=== PATIENT | female | born 1955 | race Caucasian/White ===

== ENCOUNTER → 2016-11-22 | Outpatient (CLI) | payer BC, OTHER ==
[~2016-11-22] MED LIST: ACHD5005 PO; AMOX500C2 PO; ESTR0.3T PO; FLUT16SP22 NS; MELO-195 PO; OMEP-10 PO; TOBR5DRO2 OP
--- NOTE | 2016-11-23 19:15 | Diagnostic Imaging Report ---
Bilateral screening mammogram The current study was also evaluated with a Computer Aided Detection (CAD) system. Indication: Screening. No current complaints stated on the questionnaire. COMPARISON: 10/26/15 FINDINGS: The breasts are composed of heterogeneously dense parenchyma which may decrease mammographic sensitivity. Benign-appearing calcifications are seen. Allowing for technique and positional differences, no suspicious change is seen. IMPRESSION: Dense breasts with no definite change. ACR BI-RADS Category 2: Benign findings. Result letter will be mailed to the patient. Note: At least 10% of breast cancer is not imaged by mammography. Dictated by: Dictated on workstation # [id number]
== END ==
LOC: RAD 07:57
PROVIDERS: ATTEND Internal Medicine
DX: Z12.31 Encounter for screening mammogram for malignant neoplasm of breast (principal)
CPT/HCPCS: 77067

== ENCOUNTER → 2017-11-29 | Outpatient (CLI) | payer BC ==
--- NOTE | 2017-11-29 11:08 | Diagnostic Imaging Report ---
INDICATION: Family history of osteoporosis. Bone mineral analysis of the lumbar spine and both hips was performed. Bone mineral density lumbar spine L2-L4 is 1.364 with T score of -1.4. Bone mineral density left femoral neck is 0.892 with T score -1.0. Bone mineral density right femoral neck is 0.905 with T score -1.0. IMPRESSION: Normal bone mineral density of the lumbar spine with osteopenia of bilateral femoral necks. Dictated by: Dictated on workstation # [id number]
== END ==
LOC: RAD 09:16
PROVIDERS: ATTEND Internal Medicine
DX: M85.88 Other specified disorders of bone density and structure, other site (principal); Z82.62 Family history of osteoporosis
CPT/HCPCS: 77080

== ENCOUNTER → 2018-12-13 | Outpatient (CLI) | payer BC ==
--- NOTE | 2018-12-13 08:39 | Diagnostic Imaging Report ---
Indication: Routine screening. Comparison is made with prior mammogram from 11/29/2017 and 11/22/2016. 2-D and 3-D bilateral screening mammography was performed with CAD. Both breasts are heterogeneously dense, limiting the sensitivity of mammography. The parenchymal pattern is stable. Benign calcifications again noted bilaterally. No mass or malignant-appearing microcalcifications are seen. Axillae are unremarkable. Impression: BI-RADS category 2 No mammographic features suspicious for malignancy are identified. ACR BI-RADS Category 2: Benign findings. Result letter will be mailed to the patient. Note: At least 10% of breast cancer is not imaged by mammography. Dictated by: Dictated on workstation # [id number]
== END ==
LOC: RAD 07:16
PROVIDERS: ATTEND Internal Medicine
DX: Z12.31 Encounter for screening mammogram for malignant neoplasm of breast (principal)
CPT/HCPCS: 77067

== ENCOUNTER 2019-12-02 07:20 | Emergency (ER) | payer BC ==
[~2019-12-02] VITALS: Ht 160 cm; Wt 83.0 kg
--- OUTSIDE RECORDS SUMMARY | 2019-12-02 07:25 | XMS REPORT ---
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 Name Role Phone RENEE AMBROSE Unavailable RENEE AMBROSE MD Unavailable Unavailable JEAN PAUL BLACK Unavailable Unavailable RENEE AMBROSE MD Unavailable Unavailable Unavailable Unavailable Unavailable Unavailable Allergies The data below is from unstructured sources Allergen Type Severity Reaction Last Updated No Known Drug Allergies 06/04/12 Medications No Information Problems Active Problems Problem Normalized Date Last Normalized Normalized Provider Fa cility Classification Problem(s) Recorded Problem Problem Sta tus Duration Other Encounter for Episodic Active RENEE AMBROSE , Not Available screening for screening (85849) suspected mammogram for conditions malignant (not mental neoplasm of disorders or breast infectious Translations: disease) (14 [ OTH SCREEN sources.) MAMMO-MALIGN NEOPLASM OF STAS] Residual Family history Episodic Active [facility] Sari MURPHY Via codes; of [facility] unclassified [facility] - (4 sources.) [facility] (91689) Other bone Other Episodic Active POLINA MURPHY Via disease and specified [facility] musculoskeleta disorders of Hospital - l deformities bone density [facility] (4 sources.) and structure, (09722) other site Past or Other Problems Problem Normalized Date Last Normalized Normalized Provider Fa cility Classification Problem(s) Recorded Problem Problem Sta tus Duration External cause Other no information no information JEAN PAUL Not Available codes: accidents CARI VALDEZ (05407) Natural/enviro nment (2 sources.) External cause Other external no information no information GRE TCHEN Not Available codes: cause status CARI VALDEZ (52484) Unspecified (2 sources.) Other eye Pain in or Episodic Completed JEAN PAUL Not Availab le disorders (2 around eye CARI VALDEZ (41209) sources.) Superficial Superficial Episodic Completed JEAN PAUL Not Avai lable injury; injury of CARI VALDEZ (96437) contusion (2 cornea sources.) Procedures No Information Immunizations No Information Results The data below is from unstructured sourcesNo Known Relevant Diagnostic Tests, Laboratory Data and/or Discharge Summary. Vital Signs No Information Interventions No Information Plan of Treatment No Information Goals No Information Social History The data below is from unstructured sources History Response Recorde d Date/Time Alcohol Use Denies Use 1 10:02pm Recreational Drug Use N 03/19/13 10:02pm History Response Recorde d Date/Time Alcohol Use Denies Use 0 06/04/12 8:32am Recreational Drug Use N 06/04/12 8:32am History Response Recorde d Date/Time Alcohol Use Denies Use 0 06/04/12 8:32am Recreational Drug Use N 06/04/12 8:32am Functional Status No Information Mental Status No Information Encounters Encounter Normalized Encounter Encounter Diagnosis Care Provi lefty Organization Date Type 2017 Patient encounter no information no name no or ganization name 11-22-2016 Patient encounter no information no name no or ganization name 12-13-2018 Patient encounter no information no name no or ganization name procedure 12-13-2018 Patient encounter no information RENEE AMBROSE MD (no [facility] procedure phone) [facility] (no phone) 2017 Patient encounter no information RENEE AMBROSE MD (no [facility] procedure phone) [facility] (no phone) 11-22-2016 Patient encounter no information RENEE AMBROSE MD (no [facility] procedure phone) [facility] (no phone) 10-26-2015 Patient encounter no information no name no or ganization name procedure 10-13-2014 Patient encounter no information no name no or ganization name procedure 09-26-2013 Patient encounter no information no name no or ganization name procedure Medical Equipment No Information Payers The data below is from unstructured sources Payer Name Policy Number Subscriber Name Relationship [facility] [id number] Zee Sutton Self / Same As Patient Advance Directives Directive Response Recor ded Date Advance Directives N 10:02pm Health Care Power of Track Inspecting Supervisor N 03/19/13 10:02pm Organ Donor Y 03/19/13 1 0:02pm Directive Response Recor ded Date Advance Directives N 7:10am Health Care Power of Track Inspecting Supervisor N 11/19/12 7:10am Organ Donor Y 11/19/12 7 :10am Additional Source Comments This clinical document has been generated using [employer] software that has been certified by the Office of the National Coordinator for Health Information Technology (ONC 15.99.04.3023.Diam.31.00.0.343019) and the National Committee for Onshore D[employer] (NCQA, as an eMeasure certified technology). FOR RECORDS PERTAINING TO PATIENTS WHO ARE OR HAVE BEEN ENROLLED IN A CHEMICAL D EPENDENCY/SUBSTANCE ABUSE PROGRAM, SOME INFORMATION MAY BE OMITTED. This clinica l summary was aggregated from multiple sources. Caution should be exercised in using it in the provision of clinical care. This summary normalizes information from multiple sources, and as a consequence, information in this document may ma terially change the coding, format and clinical context of patient data. In erlinda tion, data may be omitted in some cases. CLINICAL DECISIONS SHOULD BE BASED ON T HE PRIMARY CLINICAL RECORDS. [employer] provides no warranty or guara ntee of the accuracy or completeness of information in this document.The followi ng information is based on time limited clinical information
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
[2019-12-02] MEDS ORDERED: DICL100T83 (07:51)
--- NOTE | 2019-12-02 07:52 | ED Upper Extremity ---
General Chief Complaint: Upper Extremity Stated Complaint: FALL, R HAND PAIN Nursing Triage Note: PT AMB TO ROOM 6 PT CO OF R WRIST AND HAND PAIN FROM FALL THIS AM. DENIES LOC. Nursing Sepsis Screen: No Definite Risk Source: patient History of Present Illness Date Seen by Provider: Dec 02, 2019 Time Seen by Provider: 07:43 Initial Comments PT WAS WALKING INTO WORK [employer] ( WORKS HERE [employer]) AND TRIPPED ON THE CURB, AND FELL, LANDING ON OUTSTRETCHED RIGHT HAND OCCURRED JUST PRIOR TO ARRIVAL DID NOT HIT HEAD OR HAVE LOSS OF CONSCIOUSNESS NO NECK OR BACK PAIN NO LEG PAIN NO ELBOW OR SHOULDER PAIN NO PARESTHESIAS OR MOTOR DEFICITS. C/O PAIN TO RIGHT WRIST AND DORSAL ASPECT OF HAND AND KNUCKLES. NO THUMB PAIN PT IS RIGHT HANDED NO PRIOR INJURY TO THIS HAND PCP: DR. AMBROSE Allergies and Home Medications Allergies Coded Allergies: latex (Verified Allergy, Mild, RASH, 03/19/13) Home Medications Estrogens Conjugated 0.3 Mg Tab, 0.3 MG PO DAILY, (Reported) Patient Home Medication List Home Medication List Reviewed: Yes Review of Systems Constitutional: no symptoms reported Musculoskeletal: see HPI Skin: no symptoms reported Psychiatric/Neurological: No Symptoms Reported Past Kiiukoh-Czlhwp-Ylqige Hx Past Med/Social Hx: Reviewed and Corrections made Patient Social History Alcohol Use: Denies Use Recreational Drug Use: No Smoking Status: Never a Smoker Recent Foreign Travel: No Contact w/Someone Who Travel: No Recent Infectious Disease Expo: No Immunizations Up To Date Date of Influenza Vaccine: Jan 29, 2012 Past Medical History Surgeries: Yes (FOOT / NEUROMA REMOVED; TONSILLECTOMY) Orthopedic, Tonsillectomy Respiratory: No Cardiac: No Neurological: Yes Vertigo Reproductive Disorders: No Genitourinary: No Gastrointestinal: Yes Gastroesophageal Reflux Musculoskeletal: No Endocrine: No HEENT: Yes (CHRONIC SINUSITIS) Cancer: No Psychosocial: No Integumentary: No Blood Disorders: No Physical Exam Vital Signs Vital Signs - First Documented 12/02/19 07:42 Temp 36.5 Pulse 80 Resp 18 B/P (MAP) 127/78 (94) Pulse Ox 96 Capillary Refill : Less Than 3 Seconds Height, Weight, BMI Height: '" Weight: 185lbs. oz. 83.995617se; 32.00 BMI Method:Stated General Appearance: WD/WN, no apparent distress Back: normal inspection Shoulder: normal inspection Elbow/Forearm: normal inspection Wrist: Yes bone tenderness, Yes limited ROM, Yes pain, Yes soft tissue tenderness Hand: Right, bone tenderness, limited ROM, soft tissue tenderness Neurologic/Tendon: normal sensation, normal motor functions, normal tendon functions Neurologic/Psychiatric: head porter II-XII nml as tested, no motor/sensory deficits, alert, normal mood/affect, oriented x 3 Skin: normal color, warm/dry Procedures/Interventions Splinting and Joint Reduction : Splints: [place] Wrist Progress/Results/Core Measures Results/Orders My Orders Orders - HARRIET MCDERMOTT DO Wrist, Right, 3 Views Or More (12/02/19 07:47) Hand, Right, 3 Views (12/02/19 07:47) Acetaminophen Tablet (Tylenol Tablet) (12/02/19 08:22) Ibuprofen Tablet (Motrin Tablet) (12/02/19 08:22) Wrist-[place] (12/02/19 08:22) Vital Signs/I&O 12/02/19 07:42 Temp 36.5 Pulse 80 Resp 18 B/P (MAP) 127/78 (94) Pulse Ox 96 Blood Pressure Mean: 94 Diagnostic Imaging Comments XRAYS RIGHT HAND AND WRIST--NO ACUTE BONY INJURY, PER RADIOLOGIST REPORT AT 0818 Reviewed: Reviewed by Me Departure Impression Primary Impression: RIGHT WRIST AND HAND SPRAIN AND CONTUSION Disposition: 01 HOME, SELF-CARE Condition: Stable Departure-Patient Inst. Referrals: RENEE AMBROSE MD (PCP/Family) Primary Care Physician Patient Instructions: Common Wrist Injuries (DC), Contusion (DC) Add. Discharge Instructions: ICE TO AREA AT 20 MINUTE INTERVALS WEAR SPLINT NEEDED FOR COMFORT TYLENOL AND MOTRIN NEEDED FOR PAIN FOLLOW UP WITH YOUR DR IN 1 WEEK IF NO BETTER All discharge instructions reviewed with patient and/or family. Voiced understanding. Work/School Note: Work Release Form Date Seen in the Emergency Department: Dec 02, 2019 Return to Work: Dec 02, 2019 Other Restrictions Listed Below: LIMITED USE OF RIGHT HAND X 1 WEEK HARRIET MCDERMOTT DO Dec 02, 2019 07:52
--- NOTE | 2019-12-02 08:14 | Diagnostic Imaging Report ---
INDICATION: Fall with right hand pain. AP, oblique, and lateral views of the right hand are obtained. No fracture or acute bony abnormality is seen. Joint spaces are unremarkable except for some mild degenerative changes of the interphalangeal joints. IMPRESSION: No acute abnormality of right hand. Dictated by: Dictated on workstation # [id number]
--- NOTE | 2019-12-02 08:14 | Diagnostic Imaging Report ---
INDICATION: Fall with right wrist pain AP, oblique, and lateral views of the right wrist are obtained. No fracture or acute bony abnormality is seen. IMPRESSION: Negative right wrist. Dictated by: Dictated on workstation # [id number]
[2019-12-02] MEDS ORDERED: IBUPROFEN 800 MG (MOTRIN) TAB PO STA (08:22)
[2019-12-02] MEDS ORDERED: ACETAMINOPHEN 500 MG TAB (TYLENOL) PO STA (08:22)
[2019-12-02 09:01] VITALS: BP 135/85
== END 2019-12-02 09:00 | disposition home or self-care (01) ==
LOC: EDUNIT# 07:20 → ER 07:21
DX: S63.91XA Sprain of unspecified part of right wrist and hand, initial encounter (principal); Z91.040 Latex allergy status; W01.0XXA Fall on same level from slipping, tripping and stumbling without subsequent striking against object, initial encounter; Y92.481 Parking lot as the place of occurrence of the external cause
CPT/HCPCS: 73110; 73130

== ENCOUNTER → 2019-12-23 | Outpatient (CLI) | payer BC ==
[~2019-12-23] MED LIST changes: +DICL100T83
[2019-12-23 09:28] LABS: ALANINE AMINOTRANSFERASE 16 U/L (0-55); ALBUMIN 3.7 GM/DL (3.2-4.5); ALKALINE PHOSPHATASE 77 U/L (40-136); BILIRUBIN,TOTAL 0.3 MG/DL (0.1-1.0); BUN/CREATININE RATIO 14; CALCIUM 9.1 MG/DL (8.5-10.1); CARBON DIOXIDE 27 MMOL/L (21-32); CHLORIDE 104 MMOL/L (98-107); CHOLESTEROL 214 MG/DL (< 200); CREATININE SERUM 0.91 MG/DL (0.60-1.30); GFR ESTIMATED > 60; GLUCOSE 93 MG/DL (70-105); HDL CHOLESTEROL 90 MG/DL (40-60); POTASSIUM 4.7 MMOL/L (3.6-5.0); SODIUM 139 MMOL/L (135-145); TOTAL PROTEIN 7.1 GM/DL (6.4-8.2); TRIGLYCERIDES 108 MG/DL (<150); VLDL CHOLESTEROL 22 MG/DL (5-40)
== END ==
LOC: LAB 08:45
PROVIDERS: ATTEND Internal Medicine
DX: M19.90 Unspecified osteoarthritis, unspecified site (principal); E66.9 Obesity, unspecified
CPT/HCPCS: 36415; 80053; 80061

== ENCOUNTER → 2019-12-31 | Outpatient (CLI) | payer BC ==
--- NOTE | 2019-12-31 12:26 | Diagnostic Imaging Report ---
INDICATION: Routine screening. COMPARISON: 12/13/2018 and 11/29/2017. TECHNIQUE: 2D and 3D bilateral screening mammography was performed with CAD. FINDINGS: Both breasts remain heterogeneously dense, limiting the sensitivity of mammography. The parenchymal pattern is stable. No mass or malignant appearing microcalcifications are seen. There are benign calcifications present. The axillae are unremarkable. IMPRESSION: No mammographic features suspicious for malignancy are identified. ACR BI-RADS Category 2: Benign findings. Result letter will be mailed to the patient. Note: At least 10% of breast cancer is not imaged by mammography. Dictated by: Dictated on workstation # [id number]
== END ==
LOC: RAD 07:18
PROVIDERS: ATTEND Internal Medicine
DX: Z12.31 Encounter for screening mammogram for malignant neoplasm of breast (principal)
CPT/HCPCS: 77063; 77067

== ENCOUNTER → 2021-01-05 | Outpatient (CLI) | payer BC ==
[~2021-01-05] MED LIST changes: -DICL100T83; +NF-DICLOTA
--- NOTE | 2021-01-05 10:19 | Diagnostic Imaging Report ---
Indication: Routine screening. Comparison is made with prior mammogram from 12/31/2019 and 12/13/2018. 2-D and 3-D bilateral screening mammography was performed with CAD. Both breasts are heterogeneously dense, limiting the sensitivity of mammography. Occasional benign calcifications are noted. No mass or malignant-appearing microcalcifications are seen. Axillae are unremarkable. IMPRESSION: BI-RADS Category 2 No mammographic features suspicious for malignancy are identified. ACR BI-RADS Category 2: Benign findings. Result letter will be mailed to the patient. Note: At least 10% of breast cancer is not imaged by mammography. Dictated by: Dictated on workstation # [id number]
== END ==
LOC: RAD 07:30
PROVIDERS: ATTEND Internal Medicine
DX: Z12.31 Encounter for screening mammogram for malignant neoplasm of breast (principal)
CPT/HCPCS: 77063; 77067

== ENCOUNTER 2021-04-26 10:09 | Emergency (ER) | payer BC ==
[~2021-04-26] VITALS: Ht 60 cm; Wt 83.0 kg
--- NOTE | 2021-04-26 10:36 | ED Head Injury ---
General Chief Complaint: Trauma-Non Activation Stated Complaint: HEAD INJURY Nursing Triage Note: 0930 patient fell from a 3 foot step stool. " [facility]" denies loc, has laceration to posterior head. Source: patient Exam Limitations: no limitations History of Present Illness Date Seen by Provider: Apr 26, 2021 Time Seen by Provider: 10:33 Initial Comments To ER with reports of a head injury secondary to fall. This occurred just prior to arrival she was putting up some new curtains climbing down off of the counter with intent to step on a stepstool and the stepstool slid out from beneath her causing her to strike the back of her head on the floor. She recalls all events minor headache. No anticoagulant use. No neck pain. No loss of consciousness no nausea no vomiting. She does have a laceration to the back of her head. Tetanus was last updated about 9 years ago. Occurred: just prior to arrival Severity: moderate Location: occipital Method of Injury: fell Loss of Consciousness: no loss of consciousness Allergies and Home Medications Allergies Coded Allergies: latex (Verified Allergy, Mild, RASH, 03/19/13) Patient Home Medication List Home Medication List Reviewed: Yes Diclofenac Sod (Diclofenac Sodium ER) 100 Mg Tab, (Reported) Entered as Reported by: YANG PURCELL on 12/02/19 0751 Estrogens Conjugated (Premarin Tab) 0.3 Mg Tab, 0.3 MG PO DAILY, (Reported) Entered as Reported by: RALPH EDMOND on 06/04/12 0834 Review of Systems Review of Systems Constitutional: see HPI Eyes: No Symptoms Reported Ears, Nose, Mouth, Throat: no symptoms reported Respiratory: no symptoms reported Cardiovascular: no symptoms reported Gastrointestinal: No nausea, No vomiting Genitourinary: no symptoms reported Musculoskeletal: no symptoms reported Skin: no symptoms reported Psychiatric/Neurological: Denies Headache Endocrine: No Symptoms Reported Hematologic/Lymphatic: No Symptoms Reported Past Xhmmecc-Lzvacu-Zfucgz Hx Past Medical History Surgeries: Yes (FOOT / NEUROMA REMOVED; TONSILLECTOMY) Orthopedic, Tonsillectomy Respiratory: No Cardiac: No Neurological: Yes Vertigo Reproductive Disorders: No Genitourinary: No Gastrointestinal: Yes Gastroesophageal Reflux Musculoskeletal: No Endocrine: No HEENT: Yes (CHRONIC SINUSITIS) Cancer: No Psychosocial: No Integumentary: No Blood Disorders: No Physical Exam Vital Signs Vital Signs - First Documented 04/26/21 10:20 Pulse 73 Resp 18 B/P (MAP) 171/94 (119) Pulse Ox 99 O2 Delivery Room Air Capillary Refill : Less Than 3 Seconds Height, Weight, BMI Height: '" Weight: 185lbs. oz. 83.593080zs; 230.00 BMI Method:Stated General Appearance: WD/WN, no apparent distress HEENT: PERRL/EOMI, normal ENT inspection, TMs normal, other (1 cm left-sided occipital scalp laceration with depth to the subcutaneous tissue with minimal oozing of blood. No reece sign or hemotympanum.) Neck: non-tender, full range of motion Respiratory: normal breath sounds, no respiratory distress, no accessory muscle use Gastrointestinal: normal bowel sounds, non tender, soft Extremities: normal range of motion, non-tender Psychiatric: alert, oriented x 3 Crainal Nerves: normal hearing, normal speech, PERRL Skin: normal color, warm/dry [place] Coma Score Best Eye Response: (4) Open Spontaneously Best Verbal Response: (5) Oriented Best Motor Response: (6) Obeys Commands [place] Total: 15 Progress/Results/Core Measures Results/Orders My Orders Orders - BELINDA LOWE APRN Dipht,Pertuss(Acell),Tet Adult (Boostrix (04/26/21 10:45) Lidocaine 1% Inj 20 Ml (Xylocaine 1% Inj (04/26/21 10:45) Ct Head/Cervical Spine Wo (04/26/21 10:32) Medications Given in ED Current Medications Medications Dose Ordered Sig/Robert Route Start Time Stop Time Status Last Admin Dose Admin Diphtheria/ Tetanus/Acell Pertussis 0.5 ml ONCE ONCE IM 04/26/21 10:45 04/26/21 10:46 DC 04/26/21 11:04 0.5 ML Lidocaine HCl 20 ml ONCE ONCE INJ 04/26/21 10:45 04/26/21 10:46 DC 04/26/21 11:03 20 ML Vital Signs/I&O 04/26/21 10:20 Pulse 73 Resp 18 B/P (MAP) 171/94 (119) Pulse Ox 99 O2 Delivery Room Air Blood Pressure Mean: 119 Departure Communication (Admissions) 1136-1 cm laceration to the left occipital scalp was anesthetized with 1.5 mL of 1% lidocaine without epinephrine then scrubbed with chlorhexidine/saline solution then closed with 4 humera. NAME: ZEE SHRESTHA [facility] REC#: [id number] PT STATUS: REG ER : 1955 PHYSICIAN: BELINDA LOWE APRN ADMIT DATE: 04/26/21/ER Draft Date of Exam:04/26/21 CT HEAD/CERVICAL SPINE WO PROCEDURE: CT head and CT cervical spine without contrast. TECHNIQUE: Multiple contiguous axial images were obtained through the brain and cervical spine without the use of intravenous contrast. Sagittal and coronal reformations through the cervical spine were then performed. Auto Exposure Controls were utilized during the CT exam to meet ALARA standards for radiation dose reduction. INDICATION: Fall, pain, laceration. COMPARISON: None available. FINDINGS: No intracranial hemorrhage. No intracranial mass, mass effect, midline shift, herniation, hydrocephalus, or extra-axial fluid collection. No CT evidence of an acute ischemic infarction. The orbits are unremarkable. Laceration and small scalp hematoma involving the posterior left parieto-occipital scalp without underlying calvarial fracture. The left maxillary sinus is predominantly opacified with some hyperdense material present. This is associated with mild mucoperiosteal thickening in the left maxillary sinus paz. The paranasal sinuses are otherwise clear. The calvarium appears intact. Mild vascular calcifications. Minimal anterolisthesis of C4 on C5 measuring 2 to 3 mm. Minimal retrolisthesis of C5 on C6 measuring 2 mm. Alignment of the atlantooccipital joint is well maintained. Besides endplate degenerative changes, vertebral body heights are well-maintained. Severe disc space height loss at C3/C4, C5/C6, and C6/C7. Moderate disc space height loss at C4/C5. No acute fracture or dislocation. No destructive osseous process. Scattered facet joint degenerative changes and uncovertebral joint hypertrophy are present. There is moderate right and mild left neuroforaminal stenosis at C3/C4 with at least mild central canal stenosis. Mild central canal and bilateral neuroforaminal stenosis at C4/C5. Moderate right and mild left neuroforaminal stenosis with mild to moderate central canal stenosis at C5/C6. Moderate bilateral neuroforaminal stenosis with at least mild central canal stenosis at C6/C7. No apical pneumothorax. The paraspinal soft tissues are unremarkable. IMPRESSION: No acute intracranial abnormality. No acute osseous abnormality within the cervical spine with moderate multilevel degenerative changes as described above. Laceration and small hematoma associated with the left parieto-occipital scalp without underlying calvarial fracture. Chronic appearing sinusitis within the left maxillary sinus. Given internal hyperdensities, a component of fungal sinusitis may be present. Dictated on workstation # [id number] Dict: 04/26/21 1109 Trans: 04/26/21 1121 [id number] Interpreted by: RUT WREN MD Electronically signed by: Impression Primary Impression: Scalp laceration Additional Impression: Head injury Disposition: 01 HOME, SELF-CARE Condition: Stable Departure-Patient Inst. Decision time for Depature: 10:35 Referrals: RENEE AMBROSE MD (PCP/Family) Primary Care Physician Patient Instructions: Laceration Repair With Humera ED Add. Discharge Instructions: . You can shower letting water run over this starting this evening. Return to ER for any confusion vomiting or severe headache. Otherwise return to ER to have the humera removed in about 5 to 7 days. All discharge instructions reviewed with patient and/or family. Voiced understanding. BELINDA LOWE MILITARY PAY CLERK Apr 26, 2021 10:36
[2021-04-26] MEDS ORDERED: LIDOCAINE 1% INJ 20 ML 20 ML VIAL INJ ONE (10:45)
[2021-04-26] MEDS ORDERED: TETANUS,DIPTH,PERTUSS P/F (BOOSTRIX) 0.5 ML VIAL IM ONE (10:45)
--- NOTE | 2021-04-26 11:21 | Diagnostic Imaging Report ---
PROCEDURE: CT head and CT cervical spine without contrast. TECHNIQUE: Multiple contiguous axial images were obtained through the brain and cervical spine without the use of intravenous contrast. Sagittal and coronal reformations through the cervical spine were then performed. Auto Exposure Controls were utilized during the CT exam to meet ALARA standards for radiation dose reduction. INDICATION: Fall, pain, laceration. COMPARISON: None available. FINDINGS: No intracranial hemorrhage. No intracranial mass, mass effect, midline shift, herniation, hydrocephalus, or extra-axial fluid collection. No CT evidence of an acute ischemic infarction. The orbits are unremarkable. Laceration and small scalp hematoma involving the posterior left parieto-occipital scalp without underlying calvarial fracture. The left maxillary sinus is predominantly opacified with some hyperdense material present. This is associated with mild mucoperiosteal thickening in the left maxillary sinus paz. The paranasal sinuses are otherwise clear. The calvarium appears intact. Mild vascular calcifications. Minimal anterolisthesis of C4 on C5 measuring 2 to 3 mm. Minimal retrolisthesis of C5 on C6 measuring 2 mm. Alignment of the atlantooccipital joint is well maintained. Besides endplate degenerative changes, vertebral body heights are well-maintained. Severe disc space height loss at C3/C4, C5/C6, and C6/C7. Moderate disc space height loss at C4/C5. No acute fracture or dislocation. No destructive osseous process. Scattered facet joint degenerative changes and uncovertebral joint hypertrophy are present. There is moderate right and mild left neuroforaminal stenosis at C3/C4 with at least mild central canal stenosis. Mild central canal and bilateral neuroforaminal stenosis at C4/C5. Moderate right and mild left neuroforaminal stenosis with mild to moderate central canal stenosis at C5/C6. Moderate bilateral neuroforaminal stenosis with at least mild central canal stenosis at C6/C7. No apical pneumothorax. The paraspinal soft tissues are unremarkable. IMPRESSION: No acute intracranial abnormality. No acute osseous abnormality within the cervical spine with moderate multilevel degenerative changes as described above. Laceration and small hematoma associated with the left parieto-occipital scalp without underlying calvarial fracture. Chronic appearing sinusitis within the left maxillary sinus. Given internal hyperdensities, a component of fungal sinusitis may be present. Dictated by: Dictated on workstation # [id number]
[2021-04-26 11:35] VITALS: BP 161/93
== END 2021-04-26 11:35 | disposition home or self-care (01) ==
LOC: EDUNIT# 10:09 → ER 10:11
DX: S09.90XA Unspecified injury of head, initial encounter (principal); S01.01XA Laceration without foreign body of scalp, initial encounter; R40.2410 Glasgow coma scale score 13-15, unspecified time; Z23 Encounter for immunization; W22.8XXA Striking against or struck by other objects, initial encounter
CPT/HCPCS: 70450; 72125; 90715

== ENCOUNTER 2021-05-05 08:48 | Emergency (ER) | payer BC ==
[~2021-05-05] VITALS: Ht 160 cm; Wt 83.0 kg
[2021-05-05 09:30] VITALS: BP 148/85
== END 2021-05-05 09:36 | disposition home or self-care (01) ==
LOC: EDUNIT# 08:48 → ER 08:49
DX: Z48.02 Encounter for removal of sutures (principal)

== ENCOUNTER 2023-02-23 07:30 | Day surgery (SDC) | payer BC ==
--- NOTE | 2023-02-10 01:59 | HISTORY AND PHYSICAL ---
COLONOSCOPY HISTORY AND PHYSICAL HISTORY OF PRESENT ILLNESS: The patient is a 67-year-old white female seen for yearly wellness evaluation. It has been 10 years since her last colonoscopy, at which time she had one hyperplastic polyp removed. She is being set up for routine screening colonoscopy. She is deemed to be of average risk because she is not aware of any family history for colon cancer. She has been feeling well. She has been tolerating Wegovy 1 mg weekly for the past week and at this level, is continuing to lose weight. She is now down a total of 8.2 pounds over the past 3 months. She occasionally has some mild nausea if she overeats, otherwise really reports no GI side effects. No diarrhea or constipation. 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 No past smoking history and no significant alcohol consumption. VACCINATION HISTORY: She gets flu shots at the hospital. We did recommend the new COVID booster when available. PHYSICAL EXAMINATION: GENERAL: Reveals a white female, appeared to be in no acute distress. VITAL SIGNS: Weight 171.2 pounds, BMI 30, blood pressure 130/80. CHEST: Clear. CARDIOVASCULAR: Reveals regular rate and rhythm without murmur, S3, or S4. EXTREMITIES: Revealed no cyanosis, clubbing or edema. SKIN: Evaluation reveals no suspicious nevi. Ear canals clear with normal TMs. LABORATORY DATA: Blood tests were reviewed with the patient. While her total cholesterol is mildly elevated at 227. Her cholesterol HDL ratio is relatively low at 2.9 with an HDL of 79 and LDL of 123 and triglyceride level of 123. Chemistry panel was normal. CBC is unremarkable. ASSESSMENT AND PLAN: 1. Patient is being set up for screening colonoscopy. Prep instructions were given and questions were answered. 2. Otherwise, stable wellness evaluation. Doing well in regards to weight loss on Wegovy. We will increase to 2 mg when she is due for her next dose and I will see her back in 2 months. Job ID: [id number] DocumentID: [id number] Dictated Date: 01/31/2023 16:13:59 Security Support Analyst Date: 01/31/2023 16:34:00 Dictated By: RENEE AMBROSE MD
[~2023-02-23] VITALS: Ht 160 cm; Wt 77.7 kg
[~2023-02-23 07:30] MED LIST changes: +ESTR0.5T PO; +FLUT9.9S NS; +MULT-1136 PO; +NF-DICLOTA PO; +NF-VITD400 PO; +SEMA1PEN5 SQ; +VITA1CAP PO; +VITA200C60 PO
[2023-02-23] MEDS ORDERED: LACTATED RINGERS 1,000 ML 1,000 ML IV STA (07:36)
[2023-02-23 07:50] VITALS: BP 146/75
--- NOTE | 2023-02-23 07:52 | Pre-Op Note & Conscious Sedat ---
Pre-Operative Progress Note Date H&P Reviewed: Feb 23, 2023 Time H&P Reviewed: 07:51 History & Physical: H&P Reviewed, Patient Examed, No changes noted Pre-Op Diagnosis: screening Moderate Sedation PreProcedure ASA Score 2 Airway Lungs Heart ASA score ASA 1: a normal healthy patient ASA 2: a patient with a mild systemic disease (mid diabetes, controlled hypertension, obesity ASA 3: a patient with a severe systemic disease that limits activity (angina, COPD, prior Myocardial infarction) ASA 4: a patient with an incapacitating disease that is a constant threat to life (CHF, renal failure) ASA 5: a moribund patient not expected to survive 24 hrs. (ruptured aneurysm) ASA 6: a declared brain- patient whose organs are being harvested. For emergent operations, add the letter E after the classification Mallampati Classification Grade 2 Sedation Plan Analgesia, Amnesia, Plan communicated to team members, Discussed options with patient/fam, Discussed risks with patient/fam The patient is an appropriate candidate to undergo the planned procedure, sedation, and anesthesia. The patient immediately re-assessed prior to indication. RENEE AMBROSE MD Feb 23, 2023 07:52
--- NOTE | 2023-02-23 08:50 | Progress Note-Post Operative ---
Post-Procedure Note Physician (s)/Oven Unloader (s) Physician RENEE AMBROSE MD Pre-Procedure Diagnosis Pre-Procedure Diagnosis: screening Post-Procedure Diagnosis Post-operative diagnosis: Prior to undergoing colonoscopy digital rectal evaluation was performed. Anal suture tone was normal and the perianal reflexes intact. No abnormalities noted on digital inspection anal canal or distal rectal vault. The colonoscope was then inserted into the rectum and under direct visualization advanced to the cecum. The cecum was identified by the indication of the appendiceal orifice and ileocecal valve. Photographic documentation was obtained. Careful suction was made as the colonoscope withdrawn. Quality the prep was good. Findings: There are no evidence for internal/external hemorrhoids. The rectum was unremarkable several small to medium size sigmoid diverticulum were present without evidence for diverticulitis. No other sigmoid colonic abnormalities were appreciated. The descending colon splenic flexure transverse colon hepatic flexure and ascending colon were unremarkable. A sessile 3 mm cecal polyp was noted it was biopsied and ablated with no subsequent blood loss with hot forceps. A/P 1. Mild diverticular disease confined to the sigmoid colon was present without evidence or diverticulitis. 2. One 3 mm sessile polyp was removed via hot forceps from the cecum. As long as there are no surprises on histopathology report would advocate consideration for repeat screening colonoscopy in 10 years. RENEE AMBROSE MD Feb 23, 2023 08:50
[2023-02-23 08:55] VITALS: BP 108/62
[2023-02-23 09:00] VITALS: BP 106/68
[2023-02-23 09:30] VITALS: BP 106/68
[2023-02-23 09:45] VITALS: BP 106/68
--- NOTE | 2023-02-23 10:25 | Anesthesia-General Post-Op ---
MAC Patient Condition Mental Status/LOC: Same as Preop Cardiovascular: Satisfactory Nausea/Vomiting: Absent Respiratory: Satisfactory Pain: Controlled Complications: Absent Post Op Complications Complications None Follow Up Care/Instructions Patient Instructions None needed. Anesthesiology Discharge Order Discharge Order Patient is doing well, no complaints, stable vital signs, no apparent adverse anesthesia problems. No complications reported per nursing. CHI BERNAL CRNA Feb 23, 2023 10:25
== END 2023-02-23 09:50 | disposition home or self-care (01) ==
LOC: ENDO 07:30
PROVIDERS: ATTEND Internal Medicine
DX: Z12.11 Encounter for screening for malignant neoplasm of colon (principal); D12.0 Benign neoplasm of cecum; K57.30 Diverticulosis of large intestine without perforation or abscess without bleeding; Z91.040 Latex allergy status